=== PATIENT | female | born 1995 | race Two or more races ===

== ENCOUNTER 2023-11-23 14:50 | Emergency (ER) | payer MEDICAID, OTHER ==
[~2023-11-23] VITALS: Ht 162.6 cm; Wt 87.8 kg
[2023-11-23 16:07] LABS: Basophils # (auto) 0 10 ^3/uL (0-0.2); Basophils % (auto) 0.5 % (0.0-2.0); Eosinophils # (auto) 0.1 10 ^3/uL (0-0.8); Eosinophils % (auto) 0.7 % (0.0-7.0); Hematocrit 39.1 % (36.0-46.0); Hemoglobin 13.4 g/dL (12.2-16.2); Lymphocytes # (auto) 2.4 10 ^3/uL (0.4-5.4); Lymphocytes % (auto) 25.4 % (10.0-50.0); Mean Corpuscular Hemoglobin 31.5 pg (28.0-32.0); Mean Corpuscular Hgb Conc. 34.1 g/dL (32.0-36.0); Mean Corpuscular Volume 92.2 fL (80.0-100.0); Monocytes # (auto) 0.5 10 ^3/uL (0-1.3); Monocytes % (auto) 4.9 % (0.0-12.0); Neutrophils # (auto) 6.5 10 ^3/uL (1.6-8.6); Neutrophils % (auto) 68.5 % (37.0-80.0); Nucleated Red Blood Cells % 0.1 %; Red Blood Cells 4.24 10^6/uL (4.0-5.20); Red Cell Distribution Width 13.5 % (11.8-14.3); White Blood Cell 9.5 10^3/uL (4.4-10.8)
[2023-11-23 16:53] VITALS: BP 119/64; PULSE 60; RESP 15; TEMP 98; O2SAT 97
== END 2023-11-23 16:59 | disposition home or self-care (01) ==
LOC: ER 14:57
DX: N93.9 Abnormal uterine and vaginal bleeding, unspecified (principal); R10.2 Pelvic and perineal pain; F12.10 Cannabis abuse, uncomplicated
CPT/HCPCS: 36415; 84702; 85025

== ENCOUNTER 2024-02-15 10:33 | Emergency (ER) | payer MEDICAID ==
[~2024-02-15] VITALS: Ht 162.6 cm; Wt 87.3 kg
[2024-02-15 10:53] VITALS: BP 129/72; PULSE 62; RESP 16; TEMP 97.8; O2SAT 98
[2024-02-15] MEDS ORDERED: AMOX500T3 PO (11:25)
[2024-02-15] MEDS ORDERED: ACE3T PO (11:25)
== END 2024-02-15 11:31 | disposition home or self-care (01) ==
LOC: ER 10:33
DX: K02.9 Dental caries, unspecified (principal); F12.10 Cannabis abuse, uncomplicated